=== PATIENT | male | born 1990 | race Caucasian/White ===

== ENCOUNTER 2017-10-07 00:14 | Emergency (ER) | payer OTHER ==
[2017-10-07] MEDS ORDERED: diazePAM 5 MG TABLET PO STA (00:51)
[2017-10-07] MEDS ORDERED: ACETAMINOPHEN 500 MG TABLET PO STA (00:51)
[2017-10-07] MEDS ORDERED: KETOROLAC 60 MG/2 ML VIAL IM STA (00:51)
--- NOTE | 2017-10-07 00:56 | ED Physician Documentation ---
History of Present Illness - Stated complaint Stated Complaint: BACK PAIN,LT LEG WEAKNESS - Chief complaint Chief Complaint: Back Pain - History obtained from History obtained from: Patient - History of Present Illness Timing: Today - Additonal information Additional information: 27-year-old male presents the emergency department with complaints of lower back pain which radiates into his left leg. The patient describes a sharp burning pain into his leg. No recent injury or trauma. 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 The patient denies fever, history of IV drug use, saddle anesthesia, flank pain, motor weakness, sensory changes or urinary retention. No triggering factors. The patient has had no attempts at symptom management. No other associated symptoms Review of Systems Constitutional: denies: Fever, Chills Cardiac: denies: Chest pain / pressure Respiratory: denies: Dyspnea GI: denies: Abdominal Pain : denies: Unable to Void, Incontinent, Hematuria Musculoskeletal: reports: Back pain Neurologic: denies: Generalized weakness, Focal weakness, Numbness, Difficulty speaking Immunocompromised: denies: Immunocompromised, Chemotherapy PD PAST MEDICAL HISTORY - Past Medical History Cardiovascular: None Respiratory: CPAP use Endocrine/Autoimmune: None GI: None : None HEENT: None Psych: None Musculoskeletal: Other Derm: None - Past Surgical History Past Surgical History: Yes Ortho: Other HEENT: Myringotomy (tubes) - Present Medications Home Medications: Ambulatory Orders Medication Instructions Recorded Confirmed Ropinirole HCl [Requip] 1 mg PO DAILY 12/20/14 04/25/15 Naproxen [Naprosyn] 500 mg PO BID PRN 30 Days #30 10/07/17 tablet diazePAM [Valium] 5 mg PO TID PRN #15 tablet 10/07/17 - Allergies Allergies/Adverse Reactions: Allergies Allergy/AdvReac Type Severity Reaction Status Date / Time Penicillins Allergy Edema Verified 08/07/14 11:11 acetaminophen [From Vicodin] AdvReac Headache Verified 08/07/14 11:11 crab AdvReac Rash Verified 04/24/15 08:46 hydrocodone bitartrate * AdvReac Headache Verified 08/07/14 11:11 [From Vicodin] - Social History Does the pt smoke?: No Smoking Status: Never smoker Does the pt drink ETOH?: Yes Does the pt have substance abuse?: No - Immunizations Immunizations are current?: Yes - POLST Patient has POLST: No PD ED PE NORMAL - General General: Alert and oriented X 3, No acute distress - HEENT HEENT: Atraumatic, PERRL, EOMI, Ears normal - Cardiac Cardiac: RRR, Strong equal pulses - Respiratory Respiratory: No respiratory distress - Back Back: Other (The patient has tenderness in the lower lumbar paraspinal muscles, there is no bony tenderness or crepitus) - Extremities Extremities: No deformity - Neuro Neuro: Alert and oriented X 3, No motor deficit, Other (The patient has 5/5 muscle strength in bilateral lower extremities, there is 2/4 patellar reflexes, heel to faye is intact in both lower extremities, sensation light touch is intact in the bilateral lower extremities, the patient has 2/4 dorsalis pedis pulses. The patient ambulates without difficulty and has a normal gait) - Psych Psych: Normal mood Results - Vitals Vitals: Vital Signs - 24 hr 10/07/17 00:30 Temperature 36.3 C L Heart Rate 92 Respiratory 17 Rate Blood Pressure 133/81 H O2 Saturation 98 Oxygen O2 Source Room air PD MEDICAL DECISION MAKING - ED course ED course: The patient has no red flags on history or examination that would suggest cauda equina or epidural abscess. Currently, the patient appears appropriate for discharge home and further workup and management as an outpatient. I discussed warning signs and recommended returning to the emergency department immediately for any worsening or any concerns - Sepsis Event Vital Signs: Vital Signs - 24 hr 10/07/17 00:30 Temperature 36.3 C L Heart Rate 92 Respiratory 17 Rate Blood Pressure 133/81 H O2 Saturation 98 Oxygen O2 Source Room air Departure - Departure Disposition: 01 Home, Self Care Clinical Impression: Acute low back pain with left-sided sciatica Qualifiers: Back pain laterality: left Qualified Code(s): M54.42 - Lumbago with sciatica, left side Condition: Good Instructions: ED Back Care Tips, ED Sciatica Follow-Up: Marimar Mccain MD [Primary Care Provider] - Within 1 week (If your symptoms do not improve please ask your primary care doctor about arranging outpatient physical therapy and possibly an outpatient MRI) Prescriptions: diazePAM [Valium] 5 mg PO TID PRN #15 tablet PRN Reason: Spasms Naproxen [Naprosyn] 500 mg PO BID PRN 30 Days #30 tablet PRN Reason: Pain Comments: Please return to the emergency department for worsening symptoms or any concerns
[2017-10-07 01:26] VITALS: BP 110/65
== END 2017-10-07 01:21 | disposition home or self-care (01) ==
LOC: ED 00:14
DX: M54.42 Lumbago with sciatica, left side (principal)
CPT/HCPCS: 96372; 99283; A9270